=== PATIENT | male | born 1970 | race Caucasian/White ===

== ENCOUNTER 2025-07-05 15:26 | Outpatient (CLI) | payer MEDICAID ==
[~2025-07-05 15:26] MED LIST: AMLO10TA PO; iohexol 300mg/ml 100ml inj. ONE
[2025-07-05 16:04] LABS: CREATININE 1.74 MG/DL (0.60-1.10); TOTAL CARBON DIOXIDE 25.8 MMOL/L (24-32); eGFR 41 ML/MIN
--- NOTE | 2025-07-05 18:28 | RADIOLOGY REPORT ---
EXAM: CT CT ABDOMEN PELVIS W/ IV CONTRAST HISTORY: ABD WALL MASS TECHNIQUE: Volumetric multidetector CT images of the abdomen and pelvis were obtained after the administration of intravenous contrast. All CT scans at this facility use dose modulation, iterative reconstruction, and/or weight based dosing when appropriate to reduce radiation dose to as low as reasonably achievable. COMPARISON: None FINDINGS: [LOWER CHEST]: The partially visualized lung bases are clear without a pleural effusion. [LIVER]: Small focal, well circumscribed hepatic hypodensities, which are nonspecific but statistically most likely represent small hepatic cysts. [GALLBLADDER AND BILIARY TREE]: No cholelithiasis. [SPLEEN]: Unremarkable. [PANCREAS]: Unremarkable. [ADRENAL GLANDS]: Unremarkable [KIDNEYS]: No hydronephrosis. No nephroureterolithiasis. Benign appearing renal cysts, compatible with Bosniak type I cyst. No imaging follow-up required. [BLADDER]: Unremarkable for the degree distention. [REPRODUCTIVE ORGANS]: Unremarkable. [BOWEL/MESENTERY]: Stomach is normal. No CT evidence of bowel obstruction. [id number] stool burden. Small amount presumed small bowel fecalization in the lower anterior mid abdomen at the level of the anastomosis [ASCITES]: Absent [LYMPHADENOPATHY]: No pathologically enlarged lymph nodes by CT size criteria [VASCULATURE]: No aneurysmal dilatation. [ABDOMINAL WALL]: Fat and bowel containing right inguinal hernia. In regards to the clinical question, abnormal fat containing right-sided spigelian hernia with 2 cm neck and overall sac measuring 9.7 x 4 cm. [MUSCULOSKELETAL]: No acute fracture or aggressive focal osseous lesion. Multifocal degenerative change of the visualized spine. IMPRESSION: 1. In regards to the clinical question, abnormal fat containing right-sided spigelian hernia with 2 cm neck and overall sac measuring 9.7 x 4 cm. 2. Fat and bowel containing right inguinal hernia correlate with clinical exam to exclude incarceration.
== END 2025-07-05 23:59 | disposition home or self-care (01) ==
LOC: RAD 15:26
PROVIDERS: ATTEND Surgery
DX: Z01.818 Encounter for other preprocedural examination (principal); N28.1 Cyst of kidney, acquired; K40.90 Unilateral inguinal hernia, without obstruction or gangrene, not specified as recurrent
CPT/HCPCS: 36415; 74177; 80048; Q9967

== ENCOUNTER 2025-07-09 18:19 | Emergency (ER) | payer MEDICAID ==
[~2025-07-09] VITALS: Ht 180.3 cm; Wt 67.0 kg
[~2025-07-09 18:19] MED LIST changes: -iohexol 300mg/ml 100ml inj. ONE
[2025-07-09 18:23] VITALS: BP 159/114; PULSE 73; RESP 15; TEMP 96.8; O2SAT 99
--- NOTE | 2025-07-09 18:38 | Physician Documentation ---
History of Present Illness ~ Chief Complaint: Headache Stated Complaint: HIGH B/P HPI 55-year-old gentleman reports to the emergency department for evaluation of headache and generally feeling unwell times 24 hours. Patient reports that he started a new medication Flagyl and that he had to take on Thursday and a 1 time dose. Since that time she has a really has not felt well. Patient reports that he takes losartan for high blood pressure he is concerned that the Flagyl may have caused some type of reaction. Patient reports that he was taking the Flagyl to treat a recent STI. Patient denies fever chills diarrhea but does report nausea and headache. Medication Reconciliation Allergies: Coded Allergies: No Known Allergies (Unverified , 07/09/25) Scheduled Amlodipine Besylate (Amlodipine Besylate), 1 TABLET PO DAILY, (Reported) Past Medical History Past Medical History: Hypertension, Asthma Past Surgical History: noncontributory Alcohol Use: None Drug Use: none Lives In: Home Physical Exam Vital Signs: Temperature: 96.8, Source: Temporal, Heart Rate: 73, Respiratory Rate: 15, BP: 159/114, Pulse Oximetry: 99, Weight: 67.000 Progress Results/Orders Results/Orders Vital Signs 07/09/25 18:23 Temp 96.8 Pulse 73 Resp 15 B/P (MAP) 159/114 Pulse Ox 99 Departure Referrals: NO PRIMARY CARE PROVIDER (PCP) FARNAZ MALONE Jul 09, 2025 18:38
== END 2025-07-09 21:37 | disposition left against medical advice (07) ==
LOC: ER 18:19
DX: R51.9 Headache, unspecified (principal); R11.0 Nausea; I10 Essential (primary) hypertension; J45.909 Unspecified asthma, uncomplicated
CPT/HCPCS: 99281

== ENCOUNTER 2025-08-22 11:56 | Day surgery (SDC) | payer MEDICAID ==
--- NOTE | 2025-08-15 14:33 | ELECTROCARDIOGRAPH REPORT ---
[facility] Test Date: 2025-08-15 Test Time: 15:31:46 Pat Name: MARIANNE HOLLIDAY Department: [facility]-PRE-OP Patient ID: [id number] Room: Gender: M Intensive Care Unit Registered Nurse: kurtis : 1970 Requested By: RENNY GAMBOA Order Number: [id number] Reading MD: Dr. Jannie Yepez Measurements Intervals [place] Rate: 83 P: 40 AL: 148 QRS: -42 QRSD: 96 T: 108 QT: 391 QTc: 460 Interpretive Statements Sinus rhythm Ventricular premature complex Left atrial enlargement Left anterior fascicular block LVH with secondary repolarization abnormality Electronically Signed On 08-16-2025 7:00:[address] Jannie Yepez Please click the below link to view image of tracing.
[2025-08-15 14:40] LABS: MEAN PLATELET VOLUME 9.2 FL (7.4-10.4); PRE OP PLATELET COUNT 164 X10'3 (140-440); PRE OP WHITE BLOOD COUNT 8.2 10'3 (4.8-10.8); RED CELL DISTRIBUTION WIDTH 13.8 % (11.5-14.5)
[2025-08-15 14:43] LABS: PRE OP HEMATOCRIT 60.8 % (42.0-52.0); PRE OP HEMOGLOBIN 20.7 g/dL (14.0-17.9)
[2025-08-15 15:01] LABS: CREATININE 1.88 MG/DL (0.60-1.10); PRE OP ALT 24 U/L (30-65); PRE OP ANION GAP 7 (8-16); PRE OP AST 20 U/L (10-37); PRE OP BILIRUB, TOTAL 0.9 MG/DL (0.0-1.0); PRE OP GLUCOSE 119 MG/DL (70-104); PRE OP POTASSIUM 4.3 MMOL/L (3.4-5.1); PRE OP SODIUM 138 MMOL/L (135-145); TOTAL CARBON DIOXIDE 27.3 MMOL/L (24-32); eGFR 37 ML/MIN
[~2025-08-22] VITALS: Ht 180.3 cm; Wt 74.4 kg
[2025-08-22] VITALS (19 sets, daily range): BP systolic 105–128; BP diastolic 52–92; PULSE 67–77; RESP 11–20; TEMP 97.4; O2SAT 94–99
[2025-08-22] MEDS: ceFAZolin 2gm/dext,iso 50mL 50 ML IV ONE (05:30)
[2025-08-22] MEDS: DOCUMENT DATE & TIME OF BETA-BLOCKER PO ONE (05:30)
[~2025-08-22 11:56] MED LIST changes: -AMLO10TA PO; +ASPI-1265 PO; +CARV6.253 PO; +DAPA10TA PO; +FURO20TA4 PO; +LOSA25TA41 PO; +SACU1TAB PO
[2025-08-22 12:30] LABS: MEAN PLATELET VOLUME 8.9 FL (7.4-10.4); RED CELL DISTRIBUTION WIDTH 13.8 % (11.5-14.5)
[2025-08-22] MEDS ORDERED: LIDOcaine 1% (10mg/ml)w/preservative inj. 20ml MDV ONE (12:32)
[2025-08-22] MEDS ORDERED: BUPIVAcaine 2.5mg/ml inj 50ml vial (contains preservative) ONE ×2 (12:32→13:36)
[2025-08-22] MEDS: ringers solution, lacted 1,000 ML IV SCH (12:40)
[2025-08-22] MEDS ORDERED: LIDOcaine 1% 30ml preserv. free vial ONE (13:36)
[2025-08-22] MEDS ORDERED: BUPIVACAINE liposomal/PF 13.3 MG/ML 10mL vial IM ONE (13:37)
[2025-08-22] MEDS ORDERED: BUPIVAcaine/PF 2.5mg/ml (0.25%) 10ml vial ONE (13:38)
[2025-08-22] MEDS ORDERED: fentaNYL/PF 50MCG/1 ML 2ML syringe ONE (14:06)
[2025-08-22] MEDS ORDERED: midazolam 1 mg/ML 2ml injection ONE (14:06)
--- NOTE | 2025-08-22 14:23 | HISTORY AND PHYSICAL ---
History & Physical Providers to CC CC: RENNY GAMBOA MD ~ History of Present Illness Reason for Admit\Complaint: Incisional hernia, right inguinal hernia History of Present Illness Patient is seen in my office on April and he had a large right lower quadrant hernia He was evaluated with CT scan and this demonstrated a large inguinal hernia as well as an incisional hernia associated with his previous colostomy site in the right lower quadrant He is here today for elective repair He denies any change in his past medical history since he was seen in the office (please see previous history and physical exam for all pertinent details) He is scheduled for robotic assisted, laparoscopic incisional and right inguinal hernia repair with mesh Allergies: Coded Allergies: No Known Allergies (Unverified , 07/09/25) Home Medications Home Medications Active Reported Entresto 24 mg-26 mg Tablet (Sacubitril/Valsartan) 24 Mg-26 Mg Tablet 1 Tab PO Q12H Aspirin 81 Mg Tab.chew 1 Tab PO DAILY Farxiga (Dapagliflozin Propanediol) 10 Mg Tablet 1 Tab PO QAM Losartan Potassium 25 Mg Tablet 0.5 Tab PO DAILY Carvedilol 6.25 Mg Tablet 1 Tab PO BID Furosemide 20 Mg Tablet 1 Tab PO DAILY Diagnostic Data Last Recorded Lab Results: 08/22/25 1223 RENNY GAMBOA MD Aug 22, 2025 14:23
[2025-08-22] MEDS ORDERED: desflurane 240ml liquid inh. IH ONE (14:30)
[2025-08-22] MEDS ORDERED: ringers solution, lacted 1,000 ML IV SCH (14:35)
[2025-08-22] MEDS ORDERED: enalaprilat 1.25mg/ml 2ml vial IV PRN (14:35)
[2025-08-22] MEDS ORDERED: HYDROmorphone/PF 0.2 MG/ML SYRINGE IV PRN ×2 (14:35)
[2025-08-22] MEDS ORDERED: morphine 4 MG/ML inj SYRINge IV PRN (14:35)
[2025-08-22] MEDS ORDERED: labetalol 20mg/4ml (5mg/ml) syringe IV PRN (14:35)
[2025-08-22] MEDS ORDERED: ondansetron/PF 4mg/2ml inj IV PRN (14:35)
[2025-08-22] MEDS ORDERED: fentaNYL/PF 50MCG/1 ML 2ML syringe IV PRN ×2 (14:35)
[2025-08-22] MEDS ORDERED: dexamethasone sod phosphate 4mg/ml inj. ONE (14:45)
[2025-08-22] MEDS ORDERED: rocuronium 10mg/ml inj IV ONE (14:46)
[2025-08-22] MEDS ORDERED: LIDOcaine 1%/PF 5ML 10 MG/ML VIAL ONE (14:47)
[2025-08-22] MEDS ORDERED: propofol inj 20 ML IV ONE (14:47)
[2025-08-22] MEDS ORDERED: acetaminophen 1,000mg/100ml IV 100 ML IV ONE (14:54)
[2025-08-22] MEDS ORDERED: ePHEDrine 50MG/ML INJ. ONE (15:03)
[2025-08-22] MEDS ORDERED: morphine 10mg/ml inj. ONE (16:17)
--- NOTE | 2025-08-22 18:07 | OPERATIVE REPORT ---
Operative Report Providers to CC CC: DANIEL GAMBOA MD ~ Date of Procedure: Aug 22, 2025 Pre-Operative Diagnosis: Incisional hernia, right inguinal hernia Post-Operative Diagnosis 3 cm incarcerated incisional hernia Large indirect right inguinal hernia Procedure Performed Robotic assisted, laparoscopic incarcerated 3 cm incisional hernia Robotic assisted, laparoscopic right inguinal hernia repair with mesh Surgeon: Daniel Gamboa MD FACS [employer] None Anesthesiologist: Dionte Gilbert Type of Anesthesia: General Findings: 3 cm incisional hernia with a very large amount of incarcerated omentum at the site of a previous colostomy scar Very large indirect right inguinal hernia Wound class I Complications None Prosthetics\Implants used: Extra-large right Dextile mesh Estimated Blood Loss: Minimal Specimen Removed: None Description of Procedure: Patient was brought to the operating room and identified by the nursing staff and the attending physician. Patient was placed supine and general anesthesia was induced. Preoperative antibiotics were given. [place] catheter was placed. Abdomen was prepped and draped in the standard sterile fashion. Veress needle technique was used in the abdomen was insufflated without incident. Left mid abdominal optical trocar was used to gain access to the abdomen. 12 mm port was inserted under laparoscopic guidance in the abdomen was surveyed. There was omentum tented up to the right lower quadrant abdominal wall. There was also a very large indirect right inguinal hernia noted. Additional, 8.5 mm robotic trocars were placed in the right mid abdomen and right upper quadrant under laparoscopic visualization. Patient was placed in Trendelenburg position with the right side up. The [employer] Ceferino robotic arm was docked to the patient and instruments were guided into the abdomen under laparoscopic visualization. About 20 minutes was spent mobilizing a very large amount of incarcerated omentum out of a moderate-sized hernia sac associated with a fascial defect in the right lower quadrant. This correlated with an overlying surgical scar at the site of a previous colostomy. Omentum was completely reduced. Peritoneal incision was created about 5 cm above the fascial defect and preperitoneal plane was continued down towards the fascial defect. I was not able to reduce the hernia sac due to significant scarring. Preperitoneal plane continued beyond the fascial defect into the right lower quadrant towards the right inguinal canal. Dissection continued toward the midline and all the way down to the sy mphysis pubis. The retropubic space of [place] was developed and lateral dissection continued until a very large indirect inguinal hernia sac was encountered. This was mobilized out of the inguinal canal and completely reduced. Further retroperitoneal and lateral dissection continued until there was adequate space for an extra large Dextile mesh. This was passed into the preperitoneal space so that it tucked behind the symphysis pubis and covered all potential hernia defects. Mesh was anchored with 0 Ethibond suture. Mesh abutted the edge of the ostomy site hernia. No additional mesh was used as the hernia was quite narrow in diameter measuring 3 x 1 cm. Defect was reapproximated with a long absorbing 180 day suture. Hernia sac was included in the repair. Peritoneal rent was then closed with a running absorbable suture. [place] were retrieved. Instruments were removed and the de Ceferino robotic arm was undocked from the patient. 12 mm port site was closed percutaneously with 0 Vicryl suture under laparoscopic visualization. Remaining ports were removed and the abdomen was allowed to deflate. Skin was closed at all sites with 4-0 Monocryl sutures in a subcuticular fashion. Sterile dressings were applied. Patient was awakened and taken to the postanesthesia care unit in stable condition. Counts repoted as correct: Yes DANIEL GAMBOA MD Aug 22, 2025 18:07
[2025-08-22] MEDS: oxyCODONE/APAP 5-325mg tablet PO PRN (19:53)
== END 2025-08-22 20:08 | disposition home or self-care (01) ==
LOC: PAS 11:56
PROVIDERS: ATTEND Surgery
DX: K40.90 Unilateral inguinal hernia, without obstruction or gangrene, not specified as recurrent (principal); K43.0 Incisional hernia with obstruction, without gangrene; I49.3 Ventricular premature depolarization; I44.4 Left anterior fascicular block; I11.0 Hypertensive heart disease with heart failure; I50.9 Heart failure, unspecified; J45.909 Unspecified asthma, uncomplicated; Z93.3 Colostomy status; Z79.82 Long term (current) use of aspirin; Z79.899 Other long term (current) drug therapy; Z95.0 Presence of cardiac pacemaker; Z85.46 Personal history of malignant neoplasm of prostate; Z85.51 Personal history of malignant neoplasm of bladder; Z79.84 Long term (current) use of oral hypoglycemic drugs
CPT/HCPCS: 36415; 49594; 49650; 80053; 82948; 85025; 93005; C1781; J0131; J0666; J1100; J2003; J2250; J2274; J2704; J3010; J3490; J7030; J7120; S2900; Z7506; Z7508; Z7512; A4215; A4618